=== PATIENT | male | born 2005 | race Caucasian/White ===

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

== ENCOUNTER 2025-09-24 22:25 | Emergency (ER) | payer OTHER, SELFPAY ==
--- NOTE | ~2025-09-24 | XR_ITS ---
CLINICAL HISTORY: Abd Pain; Constipation 1 view abdomen Comparison: None provided Findings: No pneumoperitoneum or pneumatosis. No abnormal calcifications. No acute fractures. IMPRESSION: Normal stool quantity. This document has been electronically signed by: Lynda Bernardo MD on 09/24/2025 23:33:22
--- NOTE | ~2025-09-24 | US_ITS ---
EXAMINATION: US SCROTUM WITH DOPPLER COMPLETE, US SCROTUM HISTORY: Right-sided testicular pain. COMPARISON: There are no prior studies available for comparison. FINDINGS: Real-time grayscale ultrasound imaging of the scrotum was performed. RIGHT TESTICLE: The right testis measures 4.6 x 2.5 x 3.1 cm and demonstrates normal homogeneous echotexture. There is microlithiasis. No masses are seen. Normal arterial and venous spectral Doppler waveforms are demonstrated. RIGHT EPIDIDYMIS: Normal in size, shape, and vascularity. LEFT TESTICLE: The left testis measures 4.8 x 2.2 x 3.2 cm and demonstrates normal homogeneous echotexture. There is microlithiasis. No masses are seen. Normal arterial and venous spectral Doppler waveforms are demonstrated. LEFT EPIDIDYMIS: Normal in size, shape, and vascularity. VARICOCELE: None. HYDROCELE: No significant hydrocele is seen. OTHER COMMENTS: There is a rounded 6 mm lymph node in the right inguinal canal. US/US scrotum doppler IMPRESSION: Unremarkable scrotal ultrasound. Electronically signed by: Gildardo Marie MD 09/25/2025 08:21 AM [facility]
--- NOTE | ~2025-09-24 | US_ITS ---
EXAMINATION: US SCROTUM WITH DOPPLER COMPLETE, US SCROTUM HISTORY: Right-sided testicular pain. COMPARISON: There are no prior studies available for comparison. FINDINGS: Real-time grayscale ultrasound imaging of the scrotum was performed. RIGHT TESTICLE: The right testis measures 4.6 x 2.5 x 3.1 cm and demonstrates normal homogeneous echotexture. There is microlithiasis. No masses are seen. Normal arterial and venous spectral Doppler waveforms are demonstrated. RIGHT EPIDIDYMIS: Normal in size, shape, and vascularity. LEFT TESTICLE: The left testis measures 4.8 x 2.2 x 3.2 cm and demonstrates normal homogeneous echotexture. There is microlithiasis. No masses are seen. Normal arterial and venous spectral Doppler waveforms are demonstrated. LEFT EPIDIDYMIS: Normal in size, shape, and vascularity. VARICOCELE: None. HYDROCELE: No significant hydrocele is seen. OTHER COMMENTS: There is a rounded 6 mm lymph node in the right inguinal canal. US/US scrotum IMPRESSION: Unremarkable scrotal ultrasound. Electronically signed by: Gildardo Marie MD 09/25/2025 08:21 AM [facility]
[2025-09-24 22:31] VITALS: BP 142/78; PULSE 64; O2SAT 99
[2025-09-24 22:48] VITALS: BP 134/73; PULSE 67; RESP 16; TEMP 36.6; O2SAT 99; BMI 19.6
--- NOTE | 2025-09-24 22:54 | ED.ABDPAIN ---
HPI - Abdominal Pain General Chief Complaint: Abdominal Pain Stated Complaint: CHD program pat with AB pain for 2 days (-n/v/d) Time Seen by Provider: 09/25/25 06:05 Source: patient and old records reviewed Mode of arrival: ambulatory Limitations: no limitations History of Present Illness ED Provider: MARANDA NAJERA narrative: 20-year-old male who denies any significant past medical history he also denies any surgical history comes in with complaint that really starts with abdominal pain on and off for the last several months starting in May. He states the pain has moved from the left abdomen to the right and then last night it started to hurt in the right lower groin and the testicle. He states he feels like he is constipated. He denies any nausea, vomiting, fever, penile rash, discharge, urinary symptoms. He denies any sexual activity he has not reported any weight loss. he has a GI outpatient follow-up 1st visit on October 08 MD elicited complaint: abdominal pain Pertinent past history: none Onset (ago): month(s) ( on and off since) Pain Consistency: intermittent Location: periumbilical, LUQ, RUQ, RLQ and LLQ Severity: mild Quality: cramping, aching and fullness Radiation: none Migration to: no migration Exacerbating factors: nothing Relieving factors: nothing Associated symptoms: constipation Related Data Previous Rx's ?Medication ?Instructions ?Recorded docusate sodium 100 mg capsule 100 mg PO BID PRN constipation #30 09/25/25 (Colace) caps famotidine 20 mg tablet (Pepcid) 20 mg PO DAILY PRN abdominal 09/25/25 discomfort #30 tabs sennosides 8.6 mg capsule (senna) 8.6 mg PO BEDTIME PRN constipation 09/25/25 #30 caps Allergies Allergy/AdvReac Type Severity Reaction Status Date / Time No Known Allergies Allergy Verified 09/24/25 22:53 Review of Systems Review of Systems Constitutional : No Weight loss, No Fever, No Chills ENT/Mouth : No sore throat, No Rhinorrhea Eyes: No Swelling, No Redness Cardiovascular : No Chest Pain, No SOB Respiratory : No Cough, No Sputum, No Wheezing Gastrointestinal : no Nausea, no Vomiting, no Diarrhea, positive abdominal Pain, No Hematochezia, No Melena, pos constipation Genitourinary : No Dysuria, No Urinary Frequency, No Hematuria, No Urgency Musculoskeletal : No joint pain, No Myalgias, No Joint Swelling Skin : No Skin Lesions, No rash Neuro : No Weakness, No Numbness, No Dizziness, No Headache All other systems reviewed and are negative. [facility] Past Medical History Attestation statement: The following information was validated with the patient. Source: old records reviewed Medical History No pertinent past medical history Social History Social History (Updated 09/25/25 @ 08:16 by Janell Peter DO) Patient Tobacco Use Status: Never used Tobacco Advance Directives: No Advance Directives Information Provided: Yes Physical Exam ED Vital Signs: Vital Signs - 24 hr 09/24/25 22:48 09/25/25 04:18 Temperature 98 F 98.0 F Pulse Rate 67 64 Respiratory Rate 16 18 Blood Pressure 134/73 120/64 Pulse Oximetry 99 98 Oxygen Delivery Method Room Air Room Air BMI result Body Mass Index 19.6 Appearance: Alert. Oriented X3. No acute distress. Eyes: Pupils equal, round and reactive to light. ENT: Pharynx normal. Neck: Normal inspection. Neck supple. CVS: Normal heart rate and rhythm. Pulses normal. Respiratory: No respiratory distress. Breath sounds normal. Abdomen: Soft and nontender. did not elicit any pain on exam other than his right lower groin near the spermatic cord. RN ansley was present Skin: Skin warm and dry. Normal skin color. Normal skin turgor. Extremities: No lower extremity edema. No calf ttp Neuro: Oriented X 3. No motor deficit. No sensory deficit. CN2-12 intact Course Course Course Narrative: 10:54 PM 09/24/2025 ([facility]): Rapid medical examination performed, full details of HPI, exam, MDM, care plan and disposition deferred to primary provider. 20-year-old male presenting by ambulance for right lower quadrant abdominal pain which began last night and radiates into the testicles. Patient denies any testicular pain, swelling, or tenderness. Denies nausea, vomiting, fever/chills, or recent trauma. Reports feeling constipated although he did have a small bowel movement today, and has been experiencing significant cramping/bloating. No surgical abdominal history. RMA abdominal exam demonstrates no right lower quadrant tenderness or rebound, no peritoneal signs, negative Rovsing. Labs and KUB ordered. Returned to waiting room. Advised to notify staff if worsening symptoms or if considering leaving prior to treatment complete. Reevaluation(s) Reevaluation #1: Graeme is mildly up but he has no right upper quadrant pain and normal LFTs Medical Decision Making Medical Decision Making [facility] Narrative: 20-year-old male who has no significant past medical history here with intermittent abdominal pains without any known triggers. He states he feels at times his belly gets gurgly then he has discomfort on both sides. He notes yesterday it is much more localized to the right lower groin and testicular area. He denies any vomiting, diarrhea, fevers, urinary symptoms. He states he is constipated though had a small bowel movement yesterday. No fevers or weight loss reported. at this time the patient will need basic labs, urine, x-ray for stool burden though his abdomen is benign, ultrasound of scrotal area to assess for orchitis or epididymitis. Differential Diagnosis Differential Diagnoses: The differential diagnosis associated with the presentation includes constipation, gastritis, IBS Admission/Observation Consideration of admission/observation: Escalation of care including admission/observation considered labs, ultrasound, urine are all his vital signs are stable, he looks well-appearing and not hydrated, I will refer him to GI as an Lab Data [facility] Lab Attestation statement: I reviewed the patient's lab results. 09/24/25 23:57 09/24/25 23:57 Labs: Lab Results 09/24/25 Range/Units 23:57 WBC 8.3 (4.8-10.8) X10*3/uL RBC 5.08 (4.60-5.80) X10*6/uL Hgb 14.9 (14.0-18.0) g/dl Hct 43.3 (42.0-52.0) % MCV 85.2 (80.0-98.0) fL MCH 29.3 (27.0-33.0) pg MCHC 34.4 (31.0-36.0) g/dl RDW 13.4 (11.0-16.0) % Plt Count 223 (160-400) X10*3/uL MPV 11.0 (9.4-12.4) fL Immature Gran % (Auto) 0.2 (0.0-0.4) % Neut % (Auto) 53.7 (45-73) % Lymph % (Auto) 37.2 (20-40) % Sheridan % (Auto) 7.9 (2-11) % Eos % (Auto) 0.6 (0-4) % Baso % (Auto) 0.4 (0-2) % Lymph # (Auto) 3.1 (1.2-4.9) X10*3/uL Sheridan # (Auto) 0.7 (0.1-1.2) X10*3/uL Eos # (Auto) 0.1 (0.0-0.4) X10*3/uL Baso # (Auto) 0.0 (0.0-0.2) X10*3/uL Abs Immat Gran (auto) 0.02 (0.00-0.03) X10*3/uL Absolute Neuts (auto) 4.4 (2.0-8.3) x10*3/uL Absolute Nucleated RBC 0.000 (0.0-0.012) X10*3/uL Nucleated RBC % (auto) 0.0 (0.0-0.2) /100WBC Sodium 141 (135-145) mmol/L Potassium 4.0 (3.3-5.1) mmol/L Chloride 105 (96-108) mmol/L Carbon Dioxide 27 (22-29) mmol/L Anion Gap 13 (12-20) BUN 21 H (9-16) mg/dL Creatinine 1.04 (0.5-1.4) mg/dL Estim Creat Clear Calc 92.3 Estimated GFR > 60 Random Glucose 83 (60-115) mg/dL Calcium 9.8 (8.4-10.2) mg/dL Total Bilirubin 1.9 H (0.0-1.0) mg/dL AST 25 (5-37) U/L ALT 16 (0-40) U/L Alkaline Phosphatase 57 (39-117) U/L Total Protein 7.5 (6.5-8.0) g/dL Albumin 5.1 H (3.5-5.0) g/dL Lipase 21 (8-78) U/L Independent Interpretation I performed an independent interpretation of an: Plain X-Ray ( normal stool burden) and Ultrasound ( no acute findings) Radiology Impression Discussion of test interpretation with radiology: I have reviewed the radiologist's reading. External Record Review External record reviewed: Outpatient record, Prior outpatient labs and Prior outpatient radiology Prescription Management I considered prescription management with: Other Discharge Plan Discharge Clinical Impression: Abdominal pain Patient Disposition: Home, Self-Care Instructions: Abdominal Pain (ED) Additional Instructions: your labs were all reassuring, your x-ray did not show significant stool burden but reported as a normal amount Your ultrasound did not show any pathology in the groin or testicle area Your urine did not show any blood At this time I am going to start her on a medication for abdominal discomfort and refer you to the GI doctor Please return for any new changes or worrisome symptoms Rest and stay hydrated eat a well-balanced diet please keep your gastroenterology appointment as planned Prescriptions: New famotidine [Pepcid] 20 mg tablet 20 mg PO DAILY PRN (Reason: abdominal discomfort) Qty: 30 0RF docusate sodium [Colace] 100 mg capsule 100 mg PO BID PRN (Reason: constipation) Qty: 30 0RF senna 8.6 mg capsule 8.6 mg PO BEDTIME PRN (Reason: constipation) Qty: 30 0RF Referrals: [facility] [place] Gastroenterology Services [Provider Group, Gastroenterology] Stand Alone Forms: Work/School Release Print Language: Sinhala
[2025-09-25 00:02] LABS: MANUAL DIFF FLAG NO
[2025-09-25 00:19] LABS: Alanine Aminotransferase 16 U/L (0-40); Albumin Level 5.1 g/dL (3.5-5.0); Alkaline Phosphatase 57 U/L (39-117); Anion Gap 13 (12-20); Aspartate Amino Transferase 25 U/L (5-37); Blood Urea Nitrogen 21 mg/dL (9-16); Calcium 9.8 mg/dL (8.4-10.2); Carbon Dioxide 27 mmol/L (22-29); Chloride 105 mmol/L (96-108); Creatinine Clr Calc Pharmacy 92.3; Estimated Glomerular Filt Rate > 60; Lipase 21 U/L (8-78); Potassium 4.0 mmol/L (3.3-5.1); Sodium 141 mmol/L (135-145); Total Protein 7.5 g/dL (6.5-8.0)
[2025-09-25 01:52] LABS: Hematocrit 43.3 % (42.0-52.0); Hemoglobin 14.9 g/dl (14.0-18.0); Imm Gran Abs Auto 0.02 X10*3/uL (0.00-0.03); Imm Gran Pct Auto 0.2 % (0.0-0.4); Lymphocytes Absolute Auto 3.1 X10*3/uL (1.2-4.9); Mean Corpuscular HGB Conc 34.4 g/dl (31.0-36.0); Mean Corpuscular Hemoglobin 29.3 pg (27.0-33.0); Mean Corpuscular Volume 85.2 fL (80.0-98.0); NRBC Abs Auto 0.000 X10*3/uL (0.0-0.012); NRBC Pct Auto 0.0 /100WBC (0.0-0.2); Platelet Count 223 X10*3/uL (160-400); Red Blood Count 5.08 X10*6/uL (4.60-5.80); White Blood Count 8.3 X10*3/uL (4.8-10.8)
[2025-09-25 04:18] VITALS: BP 120/64; PULSE 64; RESP 18; TEMP 36.7; O2SAT 98
--- OUTSIDE RECORDS SUMMARY | 2025-09-25 06:49 | XMS_ITS | Encounter Summary ---
Author Organization [facility] Address [address] [place] [id number] Phone Care Team Providers Care Hunting Sales Leader Name Role Phone Provider, Marko ADHIKARI Primary Care Provider [phone] Encounter Details Date Type Department Care Team (Late st Contact Info) Description 11/21/2012 Documentation [facility] [place] Family Medicine [address] [place] [address] Family Medicine, Physician [address] [place], [place] [phone] Social History Tobacco Use Types Packs/Day Years Used Date Smoking Tobacco: Never Assessed Sex and Gender Information Value Date Recorded Sex Assigned at Not on file Legal Sex Male 5:00 PM EDT Gender Identity Not on file Sexual Orientation Straight 06/19/2020 11 :55 AM EDT documented as of this encounter Plan of Treatment Not on file documented as of this encounter Visit Diagnoses Not on filedocumented in this encounter Care Teams Hunting Sales Leader Relationship Specialty Start Date End Date Provider, MD Marko [address] [place] [address] PCP - General Pediatrics 01/13/24 06/27/24 documented as of this encounter
--- OUTSIDE RECORDS SUMMARY | 2025-09-25 06:49 | XMS_ITS | Clinical Summary ---
Author Organization [facility] Address [address] [place] [address] Phone Care Team Providers Care Photoengraving Apprentice Name Role Phone Unavailable Primary Care Provider Unavailabl e Allergies Active Allergy Reactions Criticality Noted Date Comments Environmental 04/16/2019 Seasonal Medications loratadine (CLARITIN) 10 MG tablet Take 10 mg by mouth daily. Active fluticasone (Flonase) 50 MCG/ACT nasal sprayIndications :Allergic rhinitis, unspecified seasonality, unspecified trigger Administer 2 sprays into each nostril daily. 1 Units 5 0 Active Active Problems Problem Noted Date Diagnosed Date COVID-19 virus infection 10/13/2021 Overview (10/13/2021): Tested positive 10/13/21. Mild symptoms. Allergic rhinitis 12/14/2017 Overview (12/14/2017): claritin prn. 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 Assessment & Plan (09/21/2021 9:52 AM EST): Has not seen hematology in years. Now with periumbilical pain, and weight loss. Drawing labs today. If pain worsens, labs abnormal, or just no improvement after 1 month of Prilosec will get ultrasound of gallbladder. Current symptoms not suggestive of gallstones at this time, but he is at higher risk due to his elliptocytosis. Assessment & Plan (01/28/2021 10:37 AM EDT): Family denies that patient has hereditary elliptocytosis. Half brother and half sister do appear to have hereditary elliptocytosis. Patient was seen by hematology in 2012 but this was for enlarged lymph node that was felt to be due to cat scratch fever. From what I can see from reviewing those notes there is no mention of hereditary elliptocytosis. Assessment & Plan (06/19/2020 12:26 PM EDT): No issues Assessment & Plan (12/15/2017 3:30 PM EST): No issues Resolved Problems Problem Noted Date Diagnosed Date Resolved Date Intermittent asthma 09/02/2009 12/16/19 18 Overview (12/14/2017): no issue in years. No meds Assessment & Plan (12/15/2017 3:30 PM EST): No issues in years Immunizations Immunization Administration Dates Next Due DTaP 5 07/12/2007, 5,2003,10/15,2003 HPV Vaccine 9 Valent 09/03/2015 HPV, Quadrivalent 10/08/2014,08/28/2014 Hep A, ped/adol 03/05/2016,09/03/2015 Hep B, ped/adol 03/13/2004,2003,2003 Hib (HbOC) 2003,2003,2003 Hib (PRP-T) 09/17/2004 IPV 07/12/2007, 4,2003,08/15 Influenza Split 07/13/2013, 2,08/05/2011,07/29 Influenza, injectable, quadr ivalent, preservative free 09/21/2021,06/19/2020,11/28/2019,12/15 Influenza, injectable, trivalent 009,07/17/2008,07/12/2007,07/27,07/21/2005,08/25/2004 Influenza, intranasal, quadrivalent 09/03/2015,1 10/28/2013 MMR 06/19/2004 MMRV 07/12/2007 Meningococcal Conj (Menactra) MCV4P 06/19/2020,1 10/28/2013 Pneumococcal Conjugate 09/17/2004,2003,2003,08/15 Tdap 08/28/2014 Varicella 06/19/2004 Family History Medical History Relation Name Comments ADD / ADHD Brother freeman Anxiety disorder Brother freeman Depression Brother freeman ADD / ADHD Father Louis Prostate cancer Father's Brother Heart disease Maternal Grandfather Anxiety disorder Maternal Grandmother Depression Maternal Grandmother Diabetes Maternal Grandmother Anxiety disorder Mother pool Depression Mother pool Colon cancer Mother's Brother Relation Name Status Comments Brother freeman Alive Father Louis Alive Father: Alive a nd well Father's Brother Half-Brother 1 [facility] Alive Brother: AD D/ADHD, Asthma, Hereditary elliptocytosis Half-Brother 2 Alive Half brother (P): Alive and well, Alive and well Maternal Grandfather Maternal Grandmother Alive Mother pool Alive Mother: Depress ion Mother's Brother Other grandmother: Di abetes mellitus Sister Mariah Rodriguez Alive Hereditary elliptocytosis Social History Tobacco Use Types Packs/Day Years Used Date Smoking Tobacco: Never Smokeless Tobacco: Never Tobacco Cessation:Counseling Given: Yes Comments:Never smoker Alcohol Use Standard Drinks/Week Comments Never 0 (1 standard drink = 0.6 oz pur e alcohol) Hunger/Food Answer Date Recorded In the last 12 months, did y ou or your family ever eat less than you felt you should because there wasn't enough money for food? No 09/21/2021 Stable Housing Answer Date Recorded Are you worried that in the next 2 months you may not have stable housing? No 09/21/2021 Transportation Concerns Answer Date Rec orded In the last 12 months, have you or your family ever had to go without healthcare because you didn't have a way to get there? No 09/21/2021 Hazards in Home Answer Date Recorded Think about the place you li ve. Do you have problems with any of the following? Pests (mice or roaches), mold, no/not working smoke detectors, water leaks, no window guards. No 2020 Financing Utilities Answer Date Recorde d In the last 12 months, has t he electric, gas, oil, or water company threatened to shut off your services in your home? No 09/21/2021 Safety at Home Answer Date Recorded Are you or your family worried about feeling saf e in your home? No 09/21/2021 Outside Support Answer Date Recorded Do you feel that you need mo re support from other people or programs to help you care for yourself or your family? No 09/21/2021 Understanding Health Concerns Answer Da te Recorded Do you need help understandi ng your or your child's healthcare needs (diagnosis, medications, plan, etc.)? No 09/21/2021 Financing Health Concerns Answer Date R ecorded In the last 12 months, was t here a time when your child needed to see a doctor or get medications or supplies but could not because of cost? No 09/21/2021 Missing School or Work Answer Date Ricky rded Did you or your child miss s chool or work because of a health problem that could have been avoided? No 09/21/2021 Sex and Gender Information Value Date Recorded Sex Assigned at Not on file Legal Sex Male 5:00 PM EDT Gender Identity Not on file Sexual Orientation Straight 06/19/2020 11 :55 AM EDT Last Filed Vital Signs Vital Sign Reading Time Taken Comments Blood Pressure 106/62 09/21/2021 9:11 AM EST Pulse 57 09/21/2021 9:11 AM EST Temperature 35.4 C (95.8 F) 09/21/2021 9:11 AM EST Respiratory Rate - - Oxygen Saturation - - Inhaled Oxygen Concentration - - Weight 59 kg (130 lb) 09/21/2021 9:11 AM EST Height 172.1 cm (5' 7.75 ) 09/21/2021 9:11 AM ES T Body Mass Index 19.91 09/21/2021 9:11 AM EST Plan of Treatment Health Maintenance Due Date Last Done Comments Men B Vaccine (1 of 2 - Standard) 2019 DTaP,Tdap,and Td Vaccines (7 - Td or Tdap) 08/28/2024 08/28/2014, 07/12/2007, 01/07/2005, Additional history exists Influenza Vaccines (#1) 2025 09/21/20, 06/19/2020, 11/28/2019, Additional history exists COVID-19 Vaccine (3 - 2024-2 6 season) 2025 05/08/2021, 04/12/2021 Hepatitis B Vaccines Completed 03/13/2004, 2003, 2003 HIB Vaccines Completed 09/17/2004, 11/18, 2003, Additional history exists Pneumococcal Vaccine Completed 09/17/2004, 2003, 2003, Additional history exists IPV Vaccines Completed 07/12/2007, 02/15, 2003, Additional history exists MMR Vaccines Completed 07/12/2007, 06/19/2004 Varicella Vaccines Completed 07/12/2007, 06/19/2004 HPV Vaccines Completed 09/03/2015, 09/17, 08/28/2014 Hepatitis A Vaccines Completed 03/05/2016, 09/03/20 15 Meningococcal Vaccine Completed 06/19/2020, 014
--- OUTSIDE RECORDS SUMMARY | 2025-09-25 06:49 | XMS_ITS | Encounter Summary ---
Author Organization [facility] Address [address] [place] [phone] Phone Care Team Providers Care Lap Hand Tool Name Role Phone Provider, Marko ADHIKARI Primary Care Provider [phone] Encounter Details Date Type Department Care Team (Late st Contact Info) Description 11/21/2012 [place]ation [facility] [place] [address] [place] [address] Family Medicine, Physician [address] [place], [place] [phone] Social History Tobacco Use Types Packs/Day Years [...] on filedocumented in this encounter Care Teams Lap Hand Tool Relationship Specialty Start Date End Date Provider, MD Marko [address] [place] [address] PCP - General Pediatrics 01/13/24 06/27/24 documented as of this encounter
--- OUTSIDE RECORDS SUMMARY | 2025-09-25 06:49 | XMS_ITS | Encounter Summary ---
Author Organization [facility] Address [address] [place] [address] Phone Care Team Providers Care Buildings And Grounds Supervisor Name Role Phone Provider, Marko ADHIKARI Primary Care Provider [phone] Encounter Details Date Type Department Care Team (Late st Contact Info) Description 12/08/2012 Documentation [facility] [place] [address] [place] [address] Family Medicine, Physician [address] [place], [place] [phone] Social History Tobacco Use Types Packs/Day Years [...] on filedocumented in this encounter Care Teams Buildings And Grounds Supervisor Relationship Specialty Start Date End Date Provider, MD [address] [place] [address] PCP - General Pediatrics 01/13/24 06/27/24 documented as of this encounter
--- OUTSIDE RECORDS SUMMARY | 2025-09-25 06:49 | XMS_ITS | Encounter Summary ---
Author Organization [facility] Address [address] [place] [phone] Phone Care Team Providers Care Crm Campaign Manager Name Role Phone Provider, Marko ADHIKARI Primary Care Provider [phone] Encounter Details Date Type Department Care Team (Late st Contact Info) Description 03/04/2010 Documentation [facility] [place] [address] [place] [address] Family Medicine, Physician [address] [place], [place] [phone] Social History Tobacco Use Types Packs/Day Years [...] on filedocumented in this encounter Care Teams Crm Campaign Manager Relationship Specialty Start Date End Date Provider, MD Marko [address] [place] [address] PCP - General Pediatrics 01/13/24 06/27/24 documented as of this encounter
--- OUTSIDE RECORDS SUMMARY | 2025-09-25 06:49 | XMS_ITS | Encounter Summary ---
Author Organization [facility] Address [address] [place] [phone] Phone Care Team Providers Care Filteration Operator Name Role Phone Provider, Marko ADHIKARI Primary Care Provider [phone] Encounter Details Date Type Department Care Team (Late st Contact Info) Description 06/02/2017 Conversion Encounter [facility] [address] [place], [place] [id number] Social History Tobacco Use Types Packs/Day Years Used Date Smoking Tobacco: Never Comments:Never smoker Sex and Gender Information Value Date Recorded Sex Assigned at Not on file Legal Sex Male 5:00 PM EDT Gender Identity Not on file Sexual Orientation Straight 06/19/2020 11 :55 AM EDT documented as of this encounter Plan of Treatment Not on file documented as of this encounter Visit Diagnoses Not on filedocumented in this encounter Care Teams Filteration Operator Relationship Specialty Start Date End Date Provider, MD Marko [address] [place] [id number] PCP - General Pediatrics 01/13/24 06/27/24 documented as of this encounter
--- OUTSIDE RECORDS SUMMARY | 2025-09-25 06:49 | XMS_ITS | Encounter Summary ---
Author Organization [facility] Address [address] [place] [phone] Phone Care Team Providers Care Manager Corporate Name Role Phone Provider, Marko ADHIKARI Primary Care Provider [phone] Reason for Visit * Reason Onset Date Comments needs assessment 04/17/2019 Encounter Details Date Type Department Care Team (Late st Contact Info) Description 04/17/2019 Patient Outreach [facility] - [address] [address] [place]az K[place]ler [place] needs assessment Social History Tobacco Use Types Packs/Day Years Used Date Smoking Tobacco: Never Smokeless Tobacco: Never Comments:Never smoker Alcohol Use Standard Drinks/Week Comments Never 0 (1 standard drink = 0.6 oz pur e alcohol) Hunger/Food Answer Date Recorded No 04/16/2019 Stable Housing Answer Date Recorded 0 04/16/2019 Transportation Concerns Answer Date Rec orded Yes 04/16/2019 Hazards in Home Answer Date Recorded Yes 04/16/2019 Financing Utilities Answer Date Recorde d Yes 04/16/2019 Safety at Home Answer Date Recorded No 04/16/2019 Outside Support Answer Date Recorded Yes 04/16/2019 Understanding Health Concerns Answer Da te Recorded No 04/16/2019 Financing Health Concerns Answer Date R ecorded No 04/16/2019 Missing School or Work Answer Date Ricky rded No 04/16/2019 Sex and Gender Information Value Date Recorded Sex Assigned at Not on file Legal Sex Male 5:00 PM EDT Gender Identity Not on file Sexual Orientation Straight 06/19/2020 11 :55 AM EDT documented as of this encounter Plan of Treatment Not on file documented as of this encounter Visit Diagnoses Not on filedocumented in this encounter Care Teams Manager Corporate Relationship Specialty Start Date End Date Provider, MD Mark[address] [place] [phone] PCP - General Pediatrics 01/13/24 06/27/24 documented as of this encounter
[2025-09-25 09:20] LABS: Appearance Urine Clear; Glucose Urine UA Negative (Negative); PH 6.0 (5.0-9.0); Specific Gravity - Urine 1.025 (1.005-1.025); UMIC TRIGGER UACC YES
[2025-09-25 09:35] VITALS: BP 121/82; PULSE 62; RESP 18; TEMP 36.1; O2SAT 99
[2025-09-25 09:49] LABS: CT PCR Urine NOT DETECTED (Not Detect.); NG PCR Urine NOT DETECTED (Not Detect.)
== END 2025-09-25 09:36 | disposition home or self-care (01) ==
PROVIDERS: Physician Assistant; Emergency Provider Emergency Medicine
DX: R10.31 Right lower quadrant pain (principal); N50.811 Right testicular pain
CPT/HCPCS: 36415; 74018; 76870; 80053; 81001; 83690; 85025; 87491; 87591; 93975; 99282; 99284

== ENCOUNTER → 2025-09-24 22:54 | Outpatient (BNV) | payer OTHER, SELFPAY | PROVIDERS: Visit Provider Radiology Diagnostic Radiology | DX: K59.00 Constipation, unspecified (principal); R10.9 Unspecified abdominal pain | CPT/HCPCS: 74018 ==

== ENCOUNTER → 2025-09-25 06:14 | Outpatient (BNV) | payer OTHER, SELFPAY | PROVIDERS: Emergency Provider Emergency Medicine; Visit Provider Radiology Diagnostic Radiology | DX: N50.811 Right testicular pain (principal) | CPT/HCPCS: 76870; 93975 ==